=== PATIENT | male | born 1975 | race Caucasian/White ===

== ENCOUNTER 2016-12-30 14:32 | Emergency (ER) | payer OTHER ==
[~2016-12-30] VITALS: Ht 193 cm; Wt 127.5 kg
[2016-12-30] MEDS ORDERED: NAPROSYN500 MG PO (15:46)
[2016-12-30 17:18] VITALS: BP 125/86
== END 2016-12-30 17:20 | disposition home or self-care (01) ==
LOC: EME 14:32
DX: S46.001A Unspecified injury of muscle(s) and tendon(s) of the rotator cuff of right shoulder, initial encounter (principal); X50.1XXA Overexertion from prolonged static or awkward postures, initial encounter; Y93.67 Activity, basketball
CPT/HCPCS: 73030; 99281; 99284; J1885; L3650